=== PATIENT | male | born 1955 | race Caucasian/White ===

== ENCOUNTER 2016-09-22 05:35 | Day surgery (SDC) ==
[2016-09-22] MEDS ORDERED: LR 1,000 ML ONE (06:11)
[2016-09-22] MEDS ORDERED: MYLICON DROPS (DOSE) MISC ONE (08:08)
[2016-09-22] MEDS ORDERED: EPHEDRINE ONE (08:47)
[2016-09-22 09:37] VITALS: BP 123/76
[2016-09-22] MEDS ORDERED: DIPRIVAN 1% 50 ML ONE (10:14)
--- NOTE | 2016-09-23 00:07 | CONSULTATION ---
DATE OF CONSULTATION: 09/22/2016 REFERRING PHYSICIAN: Dr. Chilo Doll MD. INDICATION FOR CONSULTATION: 1. Nausea with vomiting. 2. Abdominal pain. 3. Diarrhea. 4. Anemia. 5. Hematemesis. HISTORY OF PRESENT ILLNESS: The patient is a 60-year-old, white male, who has struggled with alcohol abuse. He reports the onset of the above symptoms. He presents for further evaluation. He notes that he has a history of a Kati-en-Y gastric bypass and is concerned about the presence of an ulcer. We are asked to perform endoscopic evaluation. PAST MEDICAL HISTORY: 1. ETOH use. 2. BPH. 3. Hypertension. 4. Kidney stones. 5. Atrial fibrillation/holiday heart. 6. Urinary tract infection. 7. Morbid obesity, status post gastric bypass. He has had significant weight regain. 8. Anxiety. 9. Depression. PAST SURGICAL HISTORY: 1. Kati-en-Y gastric bypass. 2. Great toe amputation. 3. Back surgery. 4. Artery repair. FAMILY HISTORY: Remarkable for colon cancer, esophageal cancer and gastric cancer. SOCIAL HISTORY: Remarkable in that he drinks 1 pint of vodka per day. He denies tobacco use. He denies recreational drug use. He is a retired [employer]. CURRENT MEDICATIONS: 1. Flomax. 2. Lisinopril/hydrochlorothiazide. 3. OxyContin. 4. Prevacid. 5. . 6. Tramadol. 7. Valium. REVIEW OF SYSTEMS: The patient reports diffuse abdominal pain, nausea with vomiting, diarrhea, dysphagia, early satiety, and fecal incontinence. PHYSICAL EXAMINATION: General: On exam, he is an ill-appearing white male, who appears older than his stated age. vital signs: His blood pressure is 152/87, pulse 76, respirations 16, temperature of 97.9. His ASA is 3. HEENT: Remarkable for dry oropharyngeal mucosal membranes. His conjunctivae are normal. His sclerae are anicteric. Neck: Supple. Chest: Clear to auscultation with normal expiratory effort. Cardiovascular: Reveals regular rate and rhythm with no murmurs, gallops, or rubs. Abdominal: Reveals normoactive bowel sounds. The abdomen is soft with mild diffuse tenderness, but no rebound or guarding. He has evidence of central adiposity. Rectal: His stools were guaiac positive. Neurologic: He is alert and oriented x3 with the appropriate mood, affect, and memory. Musculoskeletal: Remarkable for trace edema bilaterally. OBJECTIVE DATA: From 09/15/2016, reveals a hemoglobin of 13.2, with hematocrit of 41.2, and white count of 5.19. He has 344,000 platelets. PT is 10.0 with an INR 0.98. IMPRESSION: 1. Nausea with vomiting. 2. Hematemesis. 3. Dysphagia. 4. Anemia. 5. Abdominal pain. 6. ETOH abuse. 7. Family history of colon cancer. RECOMMENDATION: 1. We will plan to perform an EGD with possible esophageal dilation. 2. We will perform a colonoscopy for further evaluation. 3. Continue current medications. 4. Continue Prevacid. 5. Additional recommendations to follow based on our endoscopic findings.
--- NOTE | 2016-09-23 03:21 | OPERATIVE NOTE ---
PROCEDURE DATE: 09/22/2016 REFERRING PHYSICIAN: Chilo Doll MD. INDICATIONS FOR PROCEDURE: 1. Nausea with vomiting. 2. Hematemesis. 3. Dysphagia. 4. Abdominal pain. 5. Diarrhea. 6. Anemia. 7. Heme-positive stools. 8. History of Kati-en-Y gastric bypass. PROCEDURE PERFORMED: Esophagogastroduodenoscopy. CONSENT: Informed consent was obtained from the patient prior to the procedure. The risks, benefits, and alternatives were discussed. MEDICATIONS: The patient received monitored anesthesia care. PERFORMING PHYSICIAN: Rossana Monahan MD. ASSISTANTS: 1. [facility] 2. Inder Baca RN. 3. Benjamin Waddell CRNA. 4. Abilio Guerrier MD (anesthesia). COMPLICATIONS: There were no complications. ESTIMATED BLOOD LOSS: None. FINDINGS: After sedation was achieved, the upper endoscope was inserted to the mid efferent jejunum. The hypopharynx appeared endoscopically normal. There were visible nasopharyngeal secretions in the hypopharynx. The tubular esophagus had normal mucosa to the distal esophagus. However, the lumen was extremely tortuous. There were small to medium varices present but no stigmata of bleeding. At the GE junction, there was grade B erosive esophagitis with streaks of erosions at the GE junction but they involved less than 75% of the circumference. The GE junction was measured at 38 cm. In the gastric lumen, there were surgical changes consistent with the patient's history of a Kati-en-Y gastric bypass. However, the lumen had a slight twist to the luminal surface in the distal pouch. There was over 100 mL of retained gastric liquid that was pooling in the upper pouch. This is consistent with gastric stasis. After evacuation, there were severe erosive changes in the pouch with nonbleeding AVMs. The pouch spanned from 38-45 cm. At the anastomosis, the mucosa appeared normal. Both the afferent and the efferent limbs of the jejunum were normal. After the exam was complete, the lumen was decompressed and the scope was removed without incident. IMPRESSION: 1. Nasopharyngeal secretions. 2. Tortuous esophagus. 3. Small to medium esophageal varices. 4. Grade B erosive esophagitis. 5. Erosive gastritis in the pouch with no evidence of bleeding. 6. Nonbleeding gastric arteriovenous malformations. 7. Normal gastrojejunal anastomosis. 8. Normal jejunum. RECOMMENDATION: 1. We will obtain a gastric emptying study. 2. Because of the esophageal tortuosity, I will also obtain a modified barium swallow. 3. Continue Prevacid daily. 4. Add Carafate 1 g p.o. 4 times a day for 12 weeks, then stop. 5. We will need to consider nadolol if he has evidence of cirrhosis. I will recheck an abdominal ultrasound and consider a liver biopsy as he has had abnormal liver function tests. 6. We will proceed with the colonoscopy as previously scheduled.
--- NOTE | 2016-09-23 03:26 | OPERATIVE NOTE ---
PROCEDURE DATE: 09/22/2016 REFERRING PHYSICIAN: Chilo Doll MD. INDICATION FOR PROCEDURE: 1. New onset diarrhea. 2. Heme-positive stools. 3. Anemia. 4. Family history of colon cancer. PROCEDURE PERFORMED: 1. Colonoscopy with polypectomy. 2. Colonoscopy with biopsy. CONSENT: Informed consent was obtained from the patient prior to the procedure. The risks, benefits, and alternatives were discussed. MEDICATIONS: The patient received monitored anesthesia care. PERFORMING PHYSICIAN: Rossana Monahan MD. ASSISTANTS: 1. [facility] 2. Inder Baca RN. 3. Benjamin Waddell CRNA. 4. Abilio Guerrier MD (anesthesia). COMPLICATIONS: There were no complications. ESTIMATED BLOOD LOSS: Less than 1 mL. SPECIMENS REMOVED: 1. Random colon biopsy. 2. Ascending colon polyp. CECAL INTUBATION TIME: 5 minutes. WITHDRAWAL TIME: 13 minutes. PREP QUALITY: Fair. FINDINGS: After sedation was achieved and the EGD performed, the patient was repositioned. The pediatric colonoscope was inserted to the terminal ileum. The terminal ileum, ileocecal valve, and appendiceal orifice appeared endoscopically normal. In the proximal ascending colon, there was a 5-10 mm sessile polyp that was removed by snare cautery. Upon further withdrawal, the colonic mucosa appeared grossly normal except for nonbleeding AVMs scattered throughout the colon. In the upper rectum, there were grade 2 internal hemorrhoids. On retroflexed view, there were medium external hemorrhoids. There was no stigmata of bleeding. Throughout the exam, random colon biopsies were taken. There were no other findings to account for the patient's symptoms. After the exam was complete, the lumen was decompressed and the scope was removed without incident. IMPRESSION: 1. Sessile ascending colon polyp, status post snare cautery. 2. Nonbleeding arteriovenous malformations. 3. Otherwise normal-appearing colonic mucosa. 4. Grade 2 internal hemorrhoids. 5. Medium external hemorrhoids. RECOMMENDATION: 1. Await endoscopic biopsy results. 2. Repeat colonoscopy in 5 years. Please note, it may be modified pending biopsy results. 3. Add Bentyl 10 mg 1 p.o. 4 times a day as the patient has a clinical history suggestive of irritable bowel syndrome. 4. We will have the patient return to clinic in 6 weeks to assess interval progress.
== END 2016-09-22 09:35 | disposition home or self-care (01) ==
LOC: ENDO 05:35
PROVIDERS: ATTEND Internal Medicine Gastroenterology
DX: D12.2 Benign neoplasm of ascending colon (principal); R11.2 Nausea with vomiting, unspecified; R19.7 Diarrhea, unspecified; R10.9 Unspecified abdominal pain; D64.9 Anemia, unspecified; K92.0 Hematemesis; N40.0 Benign prostatic hyperplasia without lower urinary tract symptoms; I10 Essential (primary) hypertension; Z87.442 Personal history of urinary calculi; I48.91 Unspecified atrial fibrillation; E66.9 Obesity, unspecified; Z80.0 Family history of malignant neoplasm of digestive organs; R13.10 Dysphagia, unspecified; R15.9 Full incontinence of feces; Z98.84 Bariatric surgery status; R68.81 Early satiety; F10.10 Alcohol abuse, uncomplicated; K21.9 Gastro-esophageal reflux disease without esophagitis; K22.8 Other specified diseases of esophagus; K31.819 Angiodysplasia of stomach and duodenum without bleeding; I85.00 Esophageal varices without bleeding; K20.9 Esophagitis, unspecified; K31.84 Gastroparesis; K55.20 Angiodysplasia of colon without hemorrhage; K64.1 Second degree hemorrhoids; K64.4 Residual hemorrhoidal skin tags; Z79.899 Other long term (current) drug therapy; F41.9 Anxiety disorder, unspecified; F32.9 Major depressive disorder, single episode, unspecified
CPT/HCPCS: 88305; 88313; J7120

== ENCOUNTER 2017-01-22 16:38 | Inpatient (IN) ==
[2017-01-22] MEDS ORDERED: ZOFRAN IV ONE (16:52)
[2017-01-22] MEDS ORDERED: NS 1,000 ML IV ONE (16:52)
--- NOTE | 2017-01-22 17:18 | PROVIDER DOCUMENTATION ---
This chart was entered by Brionna Galindo Scribe, acting as scribe for Francisco Ugarte MD. HPI-Abdominal Pain/GI Problem - General Source: patient - History of Present Illness-ABD Nature of Presenting Problems: Pt is 61 y/o M presents to the ED with abdominal pain. Pt states pain has been presents for 24 hrs. Pt states was seen at [facility] and had an abdominal xray and labs. Pt states having abnormal labs. Pt states N and V . He has actually not been feeling well for 4 days but just went to be seen today. he very rarely every has a fever. he lost #160 after gastric by-pass and panniculectomy, has had 3 lumbar operations, L great toe surger, lazy eye OS, tonsilecctomy, removal of a testicular cyst, prostate bx 6 months ago, and recent normal egd/ colonoscopy. Ileus on abdominal xray and WBC of 12,00 prompted his referral to us Abdominal Pain Onset Location: reports: generalized abdomen Pain Radiation: reports: no radiation Quality of Pain: reports: aching Severity in ED: reports: mild Onset/Duration: reports: 24 hours ago Timing: reports: still present Activities at Onset: reports: light activity Exposure to sick contacts?: No Modifying Factors: improves with: nothing Associated Symptoms: reports: loss of appetite, nausea, vomiting. denies: anxiety, arm pain, back/neck pain, chest pain, constipation, cough, diaphoresis , diarrhea, dizziness, EENT symptoms, fatigue, fever/chills, genitourinary problems, headaches, heartburn, joint pain, malaise, muscle aches, sinus congestion/drainage, rash, seizure, shortness of breath, sensory/motor loss, pain with inspiration, swelling/mass in abdomen, syncope, weakness, trouble walking Last BM: unsure Dark Stools Present?: reports: none noticed Rectal Bleeding: reports: none Rectal Pain: reports: none Emesis Description: reports: clear Bruising or Bleeding Gums?: No Similar Symptoms Previously?: Yes Recently seen or treated by another doctor?: Yes <Francisco Ugarte - Last Filed: 01/22/17 17:53> - General Source: patient <CatherineDara DulceXiomara - Last Filed: 01/22/17 19:48> - General Chief Complaint: Abdominal Pain Stated Complaint: SENT BY [facility] FOR FURTHER EVAL Time Seen by Provider: 01/22/17 16:48 Allergies/Adverse Reactions: Patient Allergies Allergy/AdvReac Type Severity Reaction Status Date / Time cefaclor [From Ceclor] Allergy ANAPHYLAXIS Verified 08/24/14 06:27 cephalexin monohydrate * Allergy ANAPHYLAXIS Verified 09/22/16 06:16 [From Keflex] codeine Allergy ITCHING Verified 09/22/16 06:16 Tetanus Vaccines and Toxoid Allergy ANAPHYLAXIS Verified 08/24/14 06:27 [Tetanus Vaccines & Toxoid] Home Medications: Home Medication List Medication Instructions Recorded Confirmed Last Taken Type Lisinopril/Hydrochlorothiazide 1 each PO DAILY 08/24/14 09/22/16 09/22/16 05:00 History [Lisinopril-Hctz 20-25 mg Tab] Oxycodone HCl [Roxicodone] 30 mg PO 4XDAY 08/24/14 09/22/16 09/21/16 13:00 History Diazepam [Valium] 10 mg PO HS 09/21/16 09/22/16 09/21/16 History Oxycodone HCl [Oxycontin] 40 mg PO DAILY 09/21/16 09/22/16 09/21/16 History Dicyclomine [Bentyl] 10 mg PO 4XDAY #120 capsule 09/22/16 Unknown Rx Ergocalciferol (Vitamin D2) 50,000 unit PO Q3DAYS #10 capsule 09/22/16 Unknown Rx [Vitamin D2] Lansoprazole [Prevacid] 30 mg PO DAILY 09/22/16 09/22/16 09/20/16 History Sucralfate [Carafate] 1 gm PO 4XDAY #120 tablet 09/22/16 Unknown Rx Review of Systems - Adult - REVIEW OF SYSTEMS - ADULT Constitutional: reports: no symptoms reported Eyes: reports: no symptoms reported Ears, Nose, Mouth & Throat: reports: no symptoms reported Cardiovascular: reports: no symptoms reported Respiratory: reports: no symptoms reported Gastrointestinal: reports: abdominal pain, nausea, vomiting. denies: diarrhea Genitourinary: reports: no symptoms reported Musculoskeletal: reports: no symptoms reported Integumentary: reports: no symptoms reported Neurological: reports: no symptoms reported Psychiatric: reports: no symptoms reported Endocrine: reports: no symptoms reported Hematologic/Lymphatic: reports: no symptoms reported Allergic/Immunologic: reports: no symptoms reported All Other Systems: Reviewed and Negative <Franicsco Ugarte - Last Filed: 01/22/17 17:53> - REVIEW OF SYSTEMS - ADULT Constitutional: reports: see HPI Eyes: reports: see HPI Ears, Nose, Mouth & Throat: reports: see HPI Cardiovascular: reports: see HPI Respiratory: reports: see HPI Gastrointestinal: reports: see HPI Genitourinary: reports: see HPI Musculoskeletal: reports: see HPI Integumentary: reports: see HPI Neurological: reports: see HPI Psychiatric: reports: see HPI Endocrine: reports: see HPI Hematologic/Lymphatic: reports: see HPI Allergic/Immunologic: reports: see HPI <Dara Alexander - Last Filed: 01/22/17 19:48> Past History - Adult - PAST MEDICAL HISTORY-ADULT Review of Records: reports: Nursing Assessment Review, Medications Reviewed, Social history reviewed & non-contributory. Major Childhood Illnesses: reports: denies history Cardiovascular: reports: HTN Respiratory: reports: denies history Gastrointestinal: reports: denies history Obstetrical/Gynecological: reports: denies history Genitourinary: reports: denies history Musculoskeletal: reports: chronic pain (back) Neurological: reports: denies history Endocrine/Immune: reports: denies history Other Conditions: reports: denies history - PRIOR SURGERIES/PROCEDURES Surgical/Procedure History: reports: back/neck (back) - IMMUNIZATION STATUS Childhood Immunizations: See Nurse Assessment Flu Vaccine: See Nurse Assessment - FAMILY HISTORY Family History: reviewed, not pertinent - SOCIAL HISTORY Smoking: denies Substance Use: alcohol Alcohol Use Frequency: 3-4 times a week Number of drinks per typical drinking period:: 3-4 drinks Living Situation: family <Francisco Ugarte - Last Filed: 01/22/17 17:53> - PAST MEDICAL HISTORY-ADULT Review of Records: reports: Old Records Reviewed <Dara Alexander - Last Filed: 01/22/17 19:48> Physical Exam-General - PHYSICAL EXAM-ADULT Initial Vital Signs Reviewed: Yes - CONSTITUTIONAL General Appearance: appears well, alert, mild distress - EYES Eyes: PERRL/EOMI, pink conjunctivae - HEAD, EARS, NOSE, MOUTH & THROAT HENMT: normocephalic/atraumatic, moist mucous membranes, normal ENT inspection - NECK Neck: non-tender, normal inspection - RESPIRATORY Respiratory: chest non-tender, lungs clear, normal breath sounds - CARDIOVASCULAR Cardiovascular: normal peripheral pulses, regular rate, rhythm - GASTROINTESTINAL (ABDOMEN) Abdominal Exam: normal bowel sounds, soft, distended, tenderness (generalized) - LYMPHATIC Lymphatic: no adenopathy - MUSCULOSKELETAL Back Exam: normal inspection Extremity: normal range of motion, normal inspection - SKIN Integumentary: normal color, normal turgor, warm/dry - NEUROLOGIC Neurologic: grossly normal - PSYCHIATRIC Psych/Mental Status: normal mood/affect, oriented x 3 <Francisco Ugarte - Last Filed: 01/22/17 17:53> - PHYSICAL EXAM-ADULT Initial Vital Signs Reviewed: Yes - CONSTITUTIONAL General Appearance: appears well, alert, mild distress - EYES Eyes: PERRL/EOMI, pink conjunctivae - HEAD, EARS, NOSE, MOUTH & THROAT HENMT: normocephalic/atraumatic, moist mucous membranes, normal ENT inspection - NECK Neck: non-tender, normal inspection - RESPIRATORY Respiratory: chest non-tender, lungs clear, normal breath sounds - CARDIOVASCULAR Cardiovascular: normal peripheral pulses, regular rate, rhythm - GASTROINTESTINAL (ABDOMEN) Abdominal Exam: distended, guarding, rigid, tenderness. negative: normal bowel sounds - MUSCULOSKELETAL Back Exam: normal inspection Extremity: normal range of motion, normal inspection - SKIN Integumentary: normal color, normal turgor, warm/dry <Dara Alexander - Last Filed: 01/22/17 19:48> Progress - PLAN OF CARE/RESULTS Progress/Plan/Lab Results: Vital Signs - 8 hr 01/22/17 16:44 Temperature 98.7 F Pulse Rate 76 Respiratory Rate 20 Blood Pressure 96/54 O2 Sat by Pulse Oximetry 98 Orders Category Date Time Status Saline Loc DIRECTED Care 01/22/17 16:48 Active NPO Diet 01/22/17 16:48 Active AMYLASE [CHEM] Stat Lab 01/22/17 16:48 Uncollected CBC WITH ELECTRONIC DIFF [HEME] Stat Lab 01/22/17 16:48 Uncollected COMPREHENSIVE METABOLIC PANEL [CHEM] Stat Lab 01/22/17 16:48 Uncollected LIPASE [CHEM] Stat Lab 01/22/17 16:48 Uncollected URINALYSIS W/POSS RFLX CULT-1 [URINALYSIS] Stat Lab 01/22/17 16:48 Uncollected 0.9% Sodium Chloride Inj [Ns] 1,000 ml Med 01/22/17 16:52 Active IV 999 mls/hr Ondansetron [Zofran] Med 01/22/17 16:52 Discontinued 4 mg IV NOW ONE Result Diagrams: 01/22/17 17:14 - EKG 1 Time of EKG reading by physician:: 16:53 EKG Read and Signed by:: Francisco Ugarte EKG Interpretation (*Must complete 3 of following elements*): Abnormal Rate: 71 Rhythm: normal sinus rhythm Comments: inferior infarct, age undetermined - CHANGE OF SHIFT REPORT (ED Provider) Report Given and Care Transferred to:: Dr. Alexander Time of Transfer: 17:53 Items Pending: Labs, CT/MRI Results (CT) <Francisco Ugarte - Last Filed: 01/22/17 17:53> - PLAN OF CARE/RESULTS Progress/Plan/Lab Results: Vital Signs - 8 hr 01/22/17 16:44 01/22/17 19:26 Temperature 98.7 F Pulse Rate 76 67 Respiratory Rate 20 12 Blood Pressure 96/54 102/57 O2 Sat by Pulse Oximetry 98 96 Laboratory Results - last 24 hr 01/22/17 01/22/17 01/22/17 17:14 17:14 17:30 WBC 11.71 H RBC 4.20 L Hgb 12.2 L Hct 34.7 L MCV 82.6 MCH 29.0 MCHC 35.2 RDW Std Deviation 15.8 H Plt Count 294 MPV 10.3 Immature Gran % (Auto) 0.3 Neut % (Auto) 87.0 H Lymph % (Auto) 5.6 L [place] % (Auto) 6.9 Eos % (Auto) 0.1 Baso % (Auto) 0.1 Immature Gran # (Auto) 0.03 Neut # (Auto) 10.20 H Lymph # (Auto) 0.65 L [place] # (Auto) 0.81 H Eos # (Auto) 0.01 Baso # (Auto) 0.01 Sodium 110 L* Potassium 6.0 H* Chloride 73 L Carbon Dioxide 20 L Anion Gap 17 BUN 76 H Creatinine 6.1 H Estimated GFR/1.73 m2 9 BUN/Creatinine Ratio 12 Glucose 97 Calculated Osmolality 246 Calcium 8.9 Total Bilirubin 0.33 AST 22 ALT 12 Alkaline Phosphatase 108 Total Protein 7.3 Albumin 3.7 Globulin 3.6 Albumin/Globulin Ratio 1.0 Amylase 56 Lipase 21 Urine Source CLEAN CATCH Urine Color YELLOW Urine Turbidity CLEAR Urine pH 5.[address] 1.007 Urine Protein TRACE A Ur Glucose (Stick) NEGATIVE Ur Ketones (Stick) NEGATIVE Urine Blood TRACE A Urine Nitrite NEGATIVE Urine Bilirubin NEGATIVE Urobilinogen Dipstick NORMAL Urine Leukocytes NEGATIVE Urine WBC (Auto) <10 Urine RBC (Auto) <10 U Epithel Cells (Auto) <10 Urine Bacteria (Auto) NEGATIVE Orders Category Date Time Status Saline Loc DIRECTED Care 01/22/17 16:48 Active NPO Diet 01/22/17 16:48 Active ABDOMEN/PELVIS W/O CONTRAST [CT] Stat Exams 01/22/17 18:07 Completed AMYLASE [CHEM] Stat Lab 01/22/17 17:14 Completed CBC WITH ELECTRONIC DIFF [HEME] Stat Lab 01/22/17 17:14 Completed COMPREHENSIVE METABOLIC PANEL [CHEM] Stat Lab 01/22/17 17:14 Completed LIPASE [CHEM] Stat Lab 01/22/17 17:14 Completed URINALYSIS W/POSS RFLX CULT-1 [URINALYSIS] Stat Lab 01/22/17 17:30 Completed 0.9% Sodium Chloride Inj [Ns] 1,000 ml Med 01/22/17 16:52 Discontinued IV 999 mls/hr Albuterol 2.5MG/Ipratrop 0.5MG [Duoneb (A & A)] Med 01/22/17 19:23 Discontinued 3 ml INH NOW ONE Calcium Gluconate 1 gm Med 01/22/17 20:00 Active 0.9% Sodium Chloride Inj [Ns] 50 ml IV NOW Ondansetron [Zofran] Med 01/22/17 16:52 Discontinued 4 mg IV NOW ONE Aerosol Treatments Routine Oth 01/22/17 19:23 Active Aerosol Treatments Stat Oth 01/22/17 19:23 Active EKG [EKG] Stat Ther 01/22/17 19:21 Ordered Laboratory Tests 01/22/17 01/22/17 01/22/17 17:14 17:14 17:30 WBC 11.71 H RBC 4.20 L Hgb 12.2 L Hct 34.7 L MCV 82.6 MCH 29.0 MCHC 35.2 RDW Std Deviation 15.8 H Plt Count 294 MPV 10.3 Immature Gran % (Auto) 0.3 Neut % (Auto) 87.0 H Lymph % (Auto) 5.6 L [place] % (Auto) 6.9 Eos % (Auto) 0.1 Baso % (Auto) 0.1 Immature Gran # (Auto) 0.03 Neut # (Auto) 10.20 H Lymph # (Auto) 0.65 L [place] # (Auto) 0.81 H Eos # (Auto) 0.01 Baso # (Auto) 0.01 Sodium 110 L* Potassium 6.0 H* Chloride 73 L Carbon Dioxide 20 L Anion Gap 17 BUN 76 H Creatinine 6.1 H Estimated GFR/1.73 m2 9 BUN/Creatinine Ratio 12 Glucose 97 Calculated Osmolality 246 Calcium 8.9 Total Bilirubin 0.33 AST 22 ALT 12 Alkaline Phosphatase 108 Total Protein 7.3 Albumin 3.7 Globulin 3.6 Albumin/Globulin Ratio 1.0 Amylase 56 Lipase 21 Urine Source CLEAN CATCH Urine Color YELLOW Urine Turbidity CLEAR Urine pH 5.[address] 1.007 Urine Protein TRACE A Ur Glucose (Stick) NEGATIVE Ur Ketones (Stick) NEGATIVE Urine Blood TRACE A Urine Nitrite NEGATIVE Urine Bilirubin NEGATIVE Urobilinogen Dipstick NORMAL Urine Leukocytes NEGATIVE Urine WBC (Auto) <10 Urine RBC (Auto) <10 U Epithel Cells (Auto) <10 Urine Bacteria (Auto) NEGATIVE Result Diagrams: 01/22/17 17:14 01/22/17 17:14 - CONSULTS/PCP/HOSPITALIST Notification #1 *Consult/PCP/Hospitalist*: Dr Alston Time Discussed: 19:44 Consult Disposition: Admit #2 Consult: Dr Bush Time Discussed: 19:45 Consult Disposition: other (will se as inpt) <Dara Alexander - Last Filed: 01/22/17 19:48> Departure <Francisco Ugarte - Last Filed: 01/22/17 17:53> - Departure Date of Disposition Decision: 01/22/17 Time of Disposition Decision: 19:45 Certified Medical Emergency: Emergent - Critical Care Note This patient required my direct & personal management of CC.: No <Dara Alexander - Last Filed: 01/22/17 19:48> - Departure DIAGNOSIS: Small bowel obstruction, Hyponatremia, Hyperkalemia Renal failure Qualifiers: Renal failure chronicity: unspecified chronicity Qualified Code(s): N19 - Unspecified kidney failure Disposition: ADMITTED INPATIENT 09 Condition: Fair Referrals and Follow-Ups: None,PCP [Primary Care Provider] - This chart was documented by the indicated scribe, (Brionna Galindo, [place]) and accurately reflects the services I performed and decisions made by me, Francisco Ugarte MD, as attested by the provider's signature.
[2017-01-22 17:34] LABS: BASO% 0.1 % (0.0-0.8); EOS# 0.01 X1000 (0.0-0.7); EOS% 0.1 % (0.0-10.0); HEMATOCRIT 34.7 % (42.0-52.0); HEMOGLOBIN 12.2 g/dL (14.0-18.0); IMM GRAN# 0.03 X1000 (0.0-0.04); IMM GRAN% 0.3 % (0.0-0.5); LYMPH# 0.65 X1000 (1.2-3.4); LYMPH% 5.6 % (20.5-51.1); MANUAL DIFF NEEDED? NO; MCHC 35.2 g/dL (33-37); MCV 82.6 FL (81-99); MONO# 0.81 X1000 (0.11-0.59); MONO% 6.9 % (1.7-9.3); MPV 10.3 FL (7.4-10.4); PLT 294 X1000 (130-400)
[2017-01-22 17:39] LABS: URINE CULTURE NEEDED? NO; URINE MICRO REVIEW NEEDED? NO; URINE SOURCE CLEAN CATCH
[2017-01-22 17:48] LABS: BILIRUBIN URINE NEGATIVE (NEGATIVE); BLOOD URINE TRACE (NEGATIVE); COLOR YELLOW; GLUCOSE URINE NEGATIVE (NEGATIVE); LEUKOCYTES URINE NEGATIVE (NEGATIVE); NITRITE URINE NEGATIVE (NEGATIVE); PH URINE 5.5; PROTEIN URINE TRACE mg/dL (NEGATIVE); SP GRAVITY URINE 1.007; TURBIDITY URINE CLEAR (CLEAR); UROBILINOGEN URINE NORMAL (NORMAL)
[2017-01-22 17:49] LABS: UR EPITHELIAL CELLS <10 /HPF (<10); URINE BACTERIA NEGATIVE /HPF; URINE RBC <10 /HPF (<10); URINE WBC <10 /HPF (<10)
[2017-01-22 18:05] LABS: ALBUMIN 3.7 g/dL (3.5-5.0); CALCIUM 8.9 mg/dL (8.8-10.2); TOTAL BILIRUBIN 0.33 mg/dL (0.20-1.00); TOTAL PROTEIN 7.3 g/dL (6.3-8.3)
--- NOTE | 2017-01-22 19:08 | Diag Imaging Result Doc PS360 ---
EXAM: ABDOMEN/PELVIS W/O CONTRAST HISTORY: vomiting/ wbc 12,000/ cr 6.1 TECHNIQUE: COMPARISON: 11/19/2015 FINDINGS: There are several stones within the gallbladder. No adjacent inflammation. I believe there is been a gastric bypass procedure. Normal spleen and adrenal glands. Normal noncontrasted liver and pancreas. No renal stones. No hydronephrosis. Normal aorta. There are multiple dilated fluid-filled loops of bowel in the mid and left abdomen. The terminal ileum is not distended as the more proximal small bowel. Normal appendix. No abscess. The urinary bladder is moderately distended and appears normal. The prostate is not enlarged. IMPRESSION: 1. I suspect there is a partial or early small bowel obstruction 2. Cholelithiasis Electronically signed by Rodrick Mann 01/22/2017 7:05 PM
[2017-01-22] MEDS ORDERED: DUONEB (A & A) INH ONE (19:23)
[2017-01-22] MEDS ORDERED: CALCIUM GLUCONATE 1 GM in NS 50 ML IV ONE (20:00)
[2017-01-22] MEDS ORDERED: KAYEXALATE PR ONE (20:48)
[2017-01-22] MEDS ORDERED: NS 1,000 ML IV SCH ×2 (21:10→23:04)
[2017-01-22] MEDS ORDERED: ZOFRAN IV PRN (21:10)
[2017-01-22] MEDS ORDERED: SODIUM CHLORIDE 0.9% INJ SCH (21:10)
[2017-01-22 21:38] LABS: ALLEN TEST YES; BE -3.7 mmoll (-3.0-3.0); BLOOD TYPE ARTERIAL; DRAW SITE R RADIAL; METHB 1.2 % (0.0-1.5); MODALITY ROOM AIR; O2(CT) 16.4 mL/dL (15.0-23.0); PCO2(98.6) 34 mmHg (35-45); PO2(98.6) 82 mmHg (60-100); SAMPLE BLOOD; SAO2 97.7 % (95.0-100.0); THB 12.2 g/dL (11.5-17.4); pH(98.6) 7.39 (7.35-7.45)
[2017-01-22] MEDS: LEVAQUIN 500 MG/D5W 500 MG/100 ML IVPB IV SCH (22:24)
[2017-01-22] MEDS: PROTONIX IV SCH (22:24)
[2017-01-22 22:39] LABS: CALCIUM 9.4 mg/dL (8.8-10.2); POTASSIUM 5.8 mmol/L (3.5-5.1)
[2017-01-22] MEDS: MORPHINE IV PRN (23:12)
--- NOTE | 2017-01-23 02:14 | HISTORY AND PHYSICAL ---
PRIMARY CARE PHYSICIAN: None. CHIEF COMPLAINT: Feeling weak, and a problem with urination. HISTORY OF PRESENT ILLNESS: This is a 61-year-old male with a past medical history of hypertension, neuropathy, who presented to the emergency department complaining of general weakness, trouble with urination. The patient reports that around January 11-, he was complaining of burning urination, and also he was needed to push in order to make urine stream. Patient reported he has been seen by urologist Dr. Salazar in the past. He had prostatic hypertrophy, and he got a prostate biopsy in August this year. He was having those problems since January 11, so his sister actually gave him Bactrim for 5 days 2 times daily. During that period of time, he was feeling better, with less pain when he urinates, and also he reported no fever or chills. He stopped Bactrim 3 days ago. Since then, he is feeling more weak, more tired. As was mentioned before, he denies any fever or chills. He was seen actually at [facility], and he was sent from there for normal labs. Here, because of those problems, he got a CT of the abdomen and pelvis, which basically shows a partial small bowel obstruction. Also, labs from today shows severe hyponatremia and hyperkalemia, so we were called in for admission. PAST MEDICAL HISTORY: 1. Hypertension. 2. Diabetes mellitus type 2. Because of bariatric surgery, he stopped taking medications 14 years ago. 3. Bilateral neuropathy. 4. Insomnia. PAST SURGICAL HISTORY: 1. Gastric bypass in 2003. 2. Back surgery. 3. Patient had 3 laminectomies. The last one was many years ago, and at some point, he was placed with a nerve stimulator that was finally removed. SOCIAL HISTORY: He reports drinking vodka twice a week. He denies smoking tobacco or using illicit drugs. He does not work, and lives with and daughter. ALLERGIES: Patient is allergic to Ceclor, codeine, and tetanus vaccine and toxoid. REVIEW OF SYSTEMS: Patient reports being constipated. He had this constipation for a long period of time. He was evaluated by GI doctor, Dr. Monahan, in the past. He reports also that he was losing his balance. PHYSICAL EXAMINATION: VITAL SIGNS: Temperature 98.7 degrees, heart rate 67, respiratory rate 12, blood pressure 102/57, O2 saturation 96% on room air. GENERAL: This is a chronically ill-looking 61-year-old male, lying in bed, in no acute distress. HEENT: Head is normocephalic, atraumatic. Anicteric sclerae and pale conjunctivae. Mucous membranes moist. NECK: Supple. No JVD noted. No carotid bruits. No lymphadenopathy. No thyromegaly. CARDIOVASCULAR: S1, S2 heard. No murmurs, gallops, or rubs. Regular rate and rhythm. RESPIRATORY: Clear bilaterally to auscultation. No work of breathing or using accessory muscles. ABDOMEN: Soft, a little bit distended, with bowel sounds present. No organomegaly. No signs of peritoneal irritation. EXTREMITIES: No clubbing, cyanosis, or edema. Signs of chronic venous insufficiency. NEUROLOGICAL: Patient alert, oriented x3. Able to move 4 extremities. Cranial nerves 2-12 grossly normal. LABORATORY DATA: White cell count 11.71, hemoglobin 12.2, hematocrit 34.7, platelets 294,000. Sodium 130, potassium 6.0, chloride 73, bicarbonate 20, anion gap 17, creatinine 6.1, BUN 76, GFR 9. Liver function tests are okay, with almost just trace blood in the urine, but the rest of the urinalysis is normal. The CT of the abdomen and pelvis shows partial or early small bowel obstruction and cholelithiasis. ASSESSMENT AND PLAN: 1. Acute renal failure. As per the patient's family, they were not aware that this patient had any renal dysfunction. Apparently, in his last visit to the hospital 3 weeks ago, he had labs done in November 2015 here in the hospital that shows a creatinine 1.3, with BUN of 26, which means a mild renal insufficiency, with GFR 57. Today is 6.1 creatinine, with GFR 9. I think this is multifactorial, because of the dehydration, the patient was unable to keep things down for the last 3 days. Also, he was taking Bactrim for 5 days. In any case, we prefer to start IV fluids, in this case normal saline at 150 mL/h. We will check BMP daily. 2. Severe hyponatremia. That could be related probably to the fact that he was getting between 1.5 and 2 L of water. Also, some Gatorade. Because of his urine, he thought that he needs some more hydration. In any case, we are going to do urine osmolality, serum osmolality, and we will consult Dr. Mckeon from Nephrology. 3. Severe hyperkalemia, with potassium 6.0. We are going to check an EKG to see if there are any electrical abnormalities. In any case, we will provide rectal Kayexalate, and will check BMP daily. 4. Severe hyponatremia, multifactorial. We will start this patient on normal saline at 150 mL/h, and we are going to check overnight BMP every 4 hours. We will readjust the rate of IV fluids accordingly. 5. Urinary tract infection. Patient was complaining of severe pain when he urinates. He has a history of recurring urinary tract infection, so we are going to order a urine culture, and will start ceftriaxone 1 g IV q.24 hours. 6. Small bowel obstruction. I think maybe this is related to chronic constipation because of chronic opiate use. In any case, we prefer to give Fleet enema. We will see what GI has to say. 7. Hypertension. At this point, we have held all blood pressure medications. Will treat accordingly if blood pressure goes after rate of 180. 8. Chronic pain syndrome. At this point, we are going to use morphine 2 mg IV q.3 hours p.r.n. pain, considering his renal function, although we understand that this patient has been of a lot of pain medications for a while. 9. Problems with voiding. We are going to consult Dr. Salazar, who is drug enforcement administration agent, his primary urologist, and we will go from there. cc: Justice Lamb MD
[2017-01-23 02:18] LABS: CALCIUM 8.9 mg/dL (8.8-10.2); POTASSIUM 5.3 mmol/L (3.5-5.1)
[2017-01-23] MEDS: MORPHINE IV PRN ×4 (02:53→23:07)
[2017-01-23 05:25] LABS: MANUAL DIFF NEEDED? NO
[2017-01-23 05:41] LABS: BASO% 0.2 % (0.0-0.8); EOS# 0.02 X1000 (0.0-0.7); EOS% 0.4 % (0.0-10.0); HEMATOCRIT 33.8 % (42.0-52.0); HEMOGLOBIN 11.8 g/dL (14.0-18.0); LYMPH% 8.3 % (20.5-51.1); MCH 29.6 PG (27-31); MCHC 34.9 g/dL (33-37); MCV 84.7 FL (81-99); MONO# 0.54 X1000 (0.11-0.59); MONO% 11.2 % (1.7-9.3); MPV 10.1 FL (7.4-10.4); NEUT% 79.9 % (42.2-75.2); PLT 241 X1000 (130-400); RBC 3.99 XMIL (4.7-6.1)
[2017-01-23] MEDS ORDERED: LEVOPHED 8 MG in D5 1/2 NS 250 ML IV SCH (06:00)
[2017-01-23 06:09] LABS: CALCIUM 9.1 mg/dL (8.8-10.2); POTASSIUM 5.2 mmol/L (3.5-5.1)
[2017-01-23] MEDS: ATIVAN IV SCH ×3 (08:26→17:58)
[2017-01-23 09:19] LABS: CALCIUM 9.3 mg/dL (8.8-10.2); POTASSIUM 5.1 mmol/L (3.5-5.1)
--- NOTE | 2017-01-23 09:47 | PROGRESS NOTE ---
DATE: 01/23/2017 HISTORY OF PRESENT ILLNESS: This is a 61-year-old who was feeling weak and problem with urination with a past medical history of hypertension, peripheral neuropathy, lower back degenerative arthritis with multiple surgeries. He presented emergency room complaining of general weakness, trouble with urination. The patient reports around January 11 or , he was complaining of burning on urination. He needed to push in order to make his urine stream. The patient reported he had been seen by urology, Dr. Salazar, in the past. He had prostatic hypertrophy. He got a prostate biopsy in August of this year. He was having those problems since January 11 so his sister actually gave him some Bactrim for 5 days. During that period of time, he was feeling better with less pain when he urinated. Also reports that he had fever and chills. He stopped Bactrim 3 days ago. Feeling more weak and more tired as mentioned before. He denies any fever or chills. Then actually at [facility], he was sent there from here, I guess for abnormal labs. He got a CT of the abdomen and pelvis, which showed partial small bowel obstruction, which showed severe hyponatremia and hyperkalemia. PAST MEDICAL HISTORY: 1. Hypertension. 2. Diabetes mellitus type 2. 3. He had bariatric surgery back in 2002 or 2003. 4. Bilateral neuropathy. 5. Insomnia. PAST SURGICAL HISTORY: 1. Gastric bypass in 2003. 2. Back surgery. 3. The patient has had 3 laminectomies, the last one many years ago. At some point, he was placed on nerve stimulation. 4. He has bilateral peripheral neuropathy which they attributes to his lower lumbar sacral nerve irritation. SOCIAL HISTORY: He, at 1 point, was drinking vodka twice a week. PHYSICAL EXAMINATION: Vital Signs: Today, in ICU, temperature is 98 degrees, pulse 76, respirations 21, blood pressure 101/41. HEENT: Pupils are equal and round. Lungs: Are clear in all lung treviño. Cardiovascular Examination: Regular rhythm and rate without murmur or S3. Abdomen: Soft. Skin: Warm and dry. Is and Os: Urine output was over 7 L. LAB: White count 4830, hematocrit 33, platelet count 241,000. Sodium 122, potassium 5.2, chloride 88, bicarb 22, BUN 66, creatinine 4.9. ASSESSMENT AND PLAN: 1. Acute renal failure, acute kidney injury. Continue fluids. Last to the hospital, his creatinine was 1.3, BUN was 26. 2. Severe hyponatremia. Continued to give him normal saline. 3. Severe hyperkalemia. it has gone down. 4. Severe hyponatremia, multifactorial. Continue intravenous fluids. 5. Urinary tract infection. Complained of severe pain. Continue antibiotics. He is on ceftriaxone. 6. Small bowel obstruction and probably complicated by chronic opiate use. Gastroenterology following. 7. Hypertension. 8. Chronic pain syndrome. 9. Problems with voiding. Dr. Salazar to see today. 10. Review of his orders. The patient is getting Ativan 0.5 mg IV t.i.d. He is getting morphine 2 mg IV q.3 hours p.r.n., Protonix 40 mg IV q.24 hours. He is on Levaquin arm. Note, labs from this morning, sodium has come up. The potassium has improved. Creatinine has improved. cc: MD Justice Portillo MD
--- NOTE | 2017-01-23 10:47 | Diag Imaging Result Doc PS360 ---
EXAM: ABDOMEN FLAT/UPRIGHT HISTORY: Follow up partial bowel obstruction TECHNIQUE: Two views COMPARISON: Compared to CT abdomen and pelvis from 01/22/2017 FINDINGS: The lower lungs are clear. No free air beneath the diaphragm. There are several mildly air distended loops of small bowel. These are less distended than on the prior study. There is air in the colon. No organomegaly. IMPRESSION: Interval improvement Electronically signed by Rodrick Mann 01/23/2017 10:45 AM
--- NOTE | 2017-01-23 11:23 | CONSULTATION ---
DATE OF CONSULTATION: 01/23/2017 REQUESTING PHYSICIAN: The hospitalist. REASON FOR CONSULTATION: Consult concerning partial small bowel obstruction. HISTORY OF PRESENT ILLNESS: A 61-year-old, male with a past medical history of hypertension and neuropathy who presented to the emergency department complaining of generalized weakness and trouble with urination. He also reported some nausea that has been persistent. He reports that his last bowel movement was the day prior to presentation. He was worked up in the emergency department for his weakness. Actually had a CT scan done which showed a partial small bowel obstruction. He also has a history of gastric bypass. This looks intact. No other acute pathology appreciated on the CT scan. He was admitted to the ICU given her electrolyte abnormalities and has been resuscitated. He also had an issue with urine output which he has, by report, had a large amount of urine output since he has gotten to the ICU. I was asked to evaluate the patient for his partial small bowel obstruction. Upon further questioning, he reports that he had some discomfort in the upper aspect of his abdomen where he thought where his transverse colon was. He reports now that it is better. He says that his abdomen does not feel as hard as it did. He, at this time, denies any kind of current nausea or vomiting when previously was getting a CT scan that showed a partial small bowel obstruction. PAST MEDICAL HISTORY: Includes hypertension, diabetes mellitus type 2, bilateral neuropathy, insomnia. PAST SURGICAL HISTORY: Includes gastric bypass, previous back surgery which included 3 laminectomies. MEDICATIONS AT HOME: The patient takes hydrochlorothiazide, oxycodone, Valium, OxyContin, Bentyl, vitamin D, Prevacid, Carafate. ALLERGIES: Allergies reported to cephalosporins, codeine, although it is reported only as an itching and he takes it apparently on daily basis, and tetanus. FAMILY HISTORY: Family history reviewed with the patient and noncontributory. SOCIAL HISTORY: Drinks vodka twice a week. Denies smoking and illicit drugs. REVIEW OF SYSTEMS: A full 10 point review of systems was obtained and negative except as specified in the HPI. PHYSICAL EXAMINATION: Vital Signs: Patient is currently afebrile. His most recent heart rate is in the 60s, most recent blood pressure 94/47, O2 saturation 98%. General Examination: No acute distress. Resting comfortably. male, looks stated age. HEENT: Normocephalic, atraumatic. Pupils equal, round, react to light. Mucous membranes moist. Oropharynx benign. Neck: Supple. Trachea midline. Cardiovascular: Regular rate and rhythm. Lungs: Grossly clear. Abdomen: Soft. At this time, nondistended. He does have active bowel sounds auscultated. No tenderness at this time. Extremities: Moves all extremities. Neurologic: Grossly intact. Skin: No signs of jaundice. Vascular: All extremities perfused. LABORATORY: Patient's white blood cell count is 4 this morning, his hematocrit is 33, platelet count is 241,000. Sodium was 120 which initially was 118 on presentation, potassium is 5.3, chloride 81, bicarb 20, BUN 71, creatinine 2.5. CT scan independently reviewed and radiology report reviewed. ASSESSMENT AND PLAN: A 61-year-old, male with weakness, severe electrolyte abnormalities, and partial small bowel obstruction. 1. Weakness. At this time, being worked up by the hospitalist. 2. Severe hyponatremia. At this time, he is being evaluated by the hospitalist. He is making some improvements slowly. 3. Severe hyperkalemia. At this time, improving. 4. Acute renal failure. At this time, he has had urine output that has increased. His BUN is improving but his creatinine still remaining elevated. Nephrology has been consulted. We will follow up with their recommendations. 5. Partial small bowel obstruction. At this time, he does have severe electrolyte abnormalities which may be contributing to his bowel obstruction. He did have an enema which he said he is feeling less distended. At this time, I would watch him and manage his other medical problems first. I appreciate the consult. If he does have persistent nausea, may need to evaluate his gastric bypass but at this time, I did not see any major pathology on the CT scan but again, we will hold off until all of his electrolytes are corrected. I appreciate the consult. cc: MD Justice North MD
[2017-01-23] MEDS: FLOMAX PO SCH ×3 (13:26→23:06)
[2017-01-23 14:27] LABS: CALCIUM 9.8 mg/dL (8.8-10.2); POTASSIUM 5.2 mmol/L (3.5-5.1)
--- NOTE | 2017-01-23 15:43 | CONSULTATION ---
DATE OF CONSULTATION: 01/22/2017 REQUESTING PHYSICIAN: Dr. Alston. REASON FOR CONSULTATION: Acute kidney injury, BPH, electrolyte abnormalities. HISTORY OF PRESENT ILLNESS: A 61-year-old male who is known to me secondary to BPH, with significant symptoms. His BPH has been managed with Flomax twice a day, which he was still having symptoms. He also has a strong family history of prostate cancer, and has undergone prostate biopsy in December 2016, which was thankfully benign. He planned to proceed with transurethral resection of the prostate, but had to defer that secondary to insurance problems. In the interim, he reports having run out of Flomax 0.4 mg twice a day over the last month and a half. Approximately 2 weeks ago, he reports starting to notice a significant decrease in the strength of urinary stream, suprapubic pressure, perineal pain, and dysuria. He has had Bactrim obtained via his sister, which he took for several days. He reports symptoms did not improve, and he developed, nausea, vomiting, and insomnia. Eventually, he was brought to [facility], where he was found to be in acute kidney failure. He was admitted to the hospital. He had a CT abdomen and pelvis done on 01/22/2017, which showed no evidence of urolithiasis, hydronephrosis. He did have a distended bladder. His creatinine at time of presentation was 6.1. Currently, he reports he is feeling somewhat better. He denies flank pain. He denies gross hematuria. He denies being treated for UTI over the last several months. PAST MEDICAL HISTORY: Diabetes mellitus, hypertension, BPH. PAST SURGICAL HISTORY: Gastric bypass, several back surgeries, and prostate biopsy. ALLERGIES: Ceclor, codeine, tetanus. SOCIAL HISTORY: Occasional alcohol. Denies tobacco or drug use. FAMILY HISTORY: Positive for prostate cancer. REVIEW OF SYSTEMS: Reviewed 12 systems. Negative, except as in HPI. PHYSICAL EXAMINATION: Vital Signs: Temperature 98.7, pulse 76, blood pressure 96/54. General: No acute distress. HEENT: Normocephalic, atraumatic. Cardiovascular: Regular rhythm. Pulmonary: Bilateral breath sounds. Abdomen: Protuberant, nontender to palpation. Genitourinary: Normal meatus. Benavidez catheter in place, draining straw-colored urine. Testes are nontender to palpation. Digital Rectal Examination: Approximately 35 g prostate, boggy, and exquisitely tender to palpation. Lymphatics: No groin lymphadenopathy. Neurologic: Alert and oriented x3. Psychiatric: Appropriate mood and affect. PERTINENT LABORATORY DATA: His creatinine is 4.9, white cell count of 5000. PERTINENT IMAGES: CT abdomen and pelvis as above. ASSESSMENT: A 61-year-old male with long-standing history of benign prostatic hypertrophy with symptoms, who likely has developed prostatitis, and given his running out of Flomax twice a day, developed retention and acute kidney injury. I have discussed with the patient the importance of medical compliance. Again, in the future, he likely would benefit from transurethral resection of the prostate. Currently, his creatinine is trending down with the Benavidez catheter, and will likely improve to baseline. PLAN: 1. Keep Benavidez catheter to gravity drainage. 2. Flomax 0.4 mg twice a day. 3. I will follow him. Thank you for the consultation. cc: MD Justice Mary MD
--- NOTE | 2017-01-23 16:00 | Diag Imaging Result Doc PS360 ---
EXAM: US RENAL 2 (RETROPER) COMPLETE HISTORY: mann TECHNIQUE: COMPARISON: None. FINDINGS: The right kidney measures 11.7 x 5.7 x 6.3 cm. Normal cortical thickness and echogenicity. No stone or hydronephrosis. No renal mass. The left kidney measures 9.5 x 4.7 x 5.7 cm. Normal renal echogenicity and cortical thickness. No renal stone or hydronephrosis. No renal mass. The urinary bladder is not distended. IMPRESSION: Normal renal ultrasound. Electronically signed by Rodrick Mann 01/23/2017 3:57 PM
[2017-01-23] MEDS ORDERED: TYLENOL PO PRN (17:31)
[2017-01-23] MEDS: NS 1,000 ML IV SCH (17:35)
--- NOTE | 2017-01-23 18:15 | CONSULTATION ---
DATE OF CONSULTATION: 01/23/2017 REASON FOR ADMISSION: Acute kidney injury, hyponatremia, hyperkalemia, urinary tract infection, small bowel obstruction. REASON FOR CONSULTATION: Acute kidney injury, assist with management. HISTORY OF PRESENT ILLNESS: This is a 61-year-old gentleman who has a past medical history of hypertension and apparently prostatitis for which he has been on Bactrim DS on multiple occasions. The patient stated about 10 days ago he had burning on urination and difficulty with stream initiation. One of his family has some Bactrim, and so he took that partial dose. He states that initially he started feeling better, but then his symptoms became worse. Along about the same time, he was having severe constipation. He used some fleets enemas, had some resolution, then had diarrhea and then constipation again. He states that he had progressive symptoms of nausea and vomiting, lethargy, even insomnia. These symptoms continued to worsen, so he went to [facility] and was sent to the emergency room for further workup. TREATMENT: In the ER, he had a CT of the abdomen and pelvis which shows partial small bowel obstruction. His laboratory showed hyperkalemia, hyponatremia, and a creatinine of 6.1. He has been treated with IV fluids, normal saline, was treated with Kayexalate for his potassium, and over the course of the night his potassium has risen, and his sodium has risen from 110 up to 122 this morning. His potassium is now down to 5.2 and creatinine is now down to 4.9. The patient has remained in ICU overnight requiring Levophed at low dose for blood pressure support. He is awake and alert and able to give an appropriate history when I see him. PAST MEDICAL HISTORY: Hypertension. Diabetes type 2. Bariatric surgery. Bilateral neuropathy. Prostatic hypertrophy. History of insomnia. Chronic back pain. PAST SURGICAL HISTORY: Gastric bypass. Back surgery. Laminectomies at least x3. He has been on nerve stimulation. Bilateral peripheral neuropathy, secondary to his nerve irritation. ALLERGIES: Multiple allergies. See chart for complete list, but these do include Ceclor, cephalexin, codeine, tetanus vaccine. HOME MEDICATIONS: Roxicodone, Lisinopril/hydrochlorothiazide, Valium, OxyContin , Bentyl, Carafate, Vitamin D2 and Prevacid. FAMILY HISTORY: Noncontributory. SOCIAL HISTORY: Occasional ETOH. No tobacco or illicit drug use. He is and has an attentive family. REVIEW OF SYSTEMS: Pertinent positives noted above in the HPI. PHYSICAL EXAMINATION: Vital Signs: Temperature 98 degrees, pulse 76, respiratory rate 21, blood pressure 101/41 on 10 mcg of Levophed. Intake 750 mL. Output 3.8 L. General: This is a chronically ill-appearing, middle-aged gentleman resting in bed. He is awake, alert, in no acute distress. HEENT: Normocephalic, atraumatic. Oral mucosa is moist. MAURICIO, conjunctivae pink. Neck: Supple. No JVD. Cardiovascular: Regular rate and rhythm. There is no murmur or gallop. He remains on pressor support. Pulmonary: He has equal excursion. He is clear bilaterally. He is on 2 L nasal cannula with no increased work of breathing. Abdomen: Soft, with positive bowel sounds. : He has a Benavidez catheter with yellow urine noted. Extremities: No clubbing, cyanosis or edema. He has chronic venous stasis changes noted to the lower extremities. Integumentary: Skin is warm and dry otherwise. Neurologic: Grossly nonfocal. LABORATORY DATA: Current laboratory: WBC of 4.8. Hemoglobin 11.8, hematocrit 33.8, platelet count of 241,000. Sodium 124, potassium 5.1, chloride 88, CO2 21, BUN 67 creatinine 4.5. His urine studies are pending. IMAGING: Abdominal CT showed a small bowel obstruction with no hydronephrosis and probable mild chronic kidney disease. ASSESSMENT AND PLAN: 1. Acute kidney injury. It looks like he has a baseline creatinine around 1.3 in September of this year and a GFR around 57 at that time. His acute kidney injury is likely multifactorial, both decreased oral intake along with medication use in the form of Bactrim and concurrent lisinopril/hydrochlorothiazide. The patient states that he "tripled up" on the Bactrim. He believes that it was single-strength Bactrim. His his renal function has had nice improvement overnight with the administration of IV fluids and after Benavidez catheter was placed, he has had significant urine output. He does have a history of benign prostatic hypertrophy and Dr. Salazar has already been consulted. We will continue the IV fluids. We will await his urine studies. He has no indications for dialysis at this time. We will recheck labs in the morning. 2. Hyponatremia. He has been treated with normal saline overnight with rather rapid improvement. He has not had any untoward effect from the sodium correction. He continues to have laboratory ordered q.4 hours through the day. 3. Hyperkalemia, resolved. 4. Urinary tract infection. He is on ceftriaxone. 5. Small bowel obstruction likely related to chronic constipation from his opiate use and exacerbated by electrolyte imbalance. We would prefer not to use Fleets secondary to his current renal function. Gastroenterology has been consulted. 6. Hypertension. He currently has all blood pressure medicines held and he is on Levophed. We will continue to hold the lisinopril, even after his pressure comes up until his renal function has returned to his baseline. Dictated by DUC Metz for Maciej Mckeon MD cc: MD Justice Pagan MD [facility]
[2017-01-23 18:27] LABS: UR CREAT RANDOM 83.4 mg/dL (14-26); UR PROT RANDOM 18.8 mg/dL
[2017-01-23] MEDS: LEVAQUIN 500 MG/D5W 500 MG/100 ML IVPB IV SCH (23:06)
[2017-01-23] MEDS: PROTONIX IV SCH (23:07)
[2017-01-24] MEDS: ATIVAN IV SCH ×5 (01:26→18:12)
--- NOTE | 2017-01-24 03:26 | CONSULTATION ---
DATE OF CONSULTATION: 01/23/2017 REFERRING PHYSICIAN: Justice Lamb MD. INDICATION FOR CONSULTATION: 1. Nausea with vomiting. 2. Abdominal pain. 3. History of Kati-en-Y gastric bypass. 4. Small bowel obstruction on CT scan. 5. Known history of portal hypertension with varices. HISTORY OF PRESENT ILLNESS: The patient is a 61-year-old, white male who has been followed in our clinic. He has a longstanding history of alcohol abuse. He reports that he drinks vodka twice per week. However, according to his family, he drinks multiple servings of vodka per day beginning early in the morning upon awakening. His reports that his last alcoholic beverage was 2 days prior to admission. He presented to the emergency room, complaining of generalized weakness and difficulty with urination. He thought he had a prostate infection and had planned to see Dr. Salazar. His states that for the last 5 days, he has had nausea with vomiting and dark colored stools. She also reports that he has been sleeping significantly longer than usual and feeling weak. He finally presented to [facility] because of the nausea with vomiting, fatigue, and an inability to urinate. He was transferred from [facility] to [facility] Emergency Room. A CT scan in the emergency room was remarkable for an early small bowel obstruction and cholelithiasis. He was admitted to the ICU for further evaluation as he was also noted to have hypotension. We are asked to participate in his care. PAST MEDICAL HISTORY: 1. Active ETOH abuse. 2. BPH. 3. Hypertension. 4. Kidney stones. 5. Intermittent atrial fibrillation. 6. Urinary tract infection. 7. Morbid obesity, status post gastric bypass with postoperative weight regain. 8. Anxiety. 9. Depression. 10. Gastroparesis. 11. History of peptic ulcer disease. 12. 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 13. Medium esophageal varices. 14. History of reflux esophagitis. 15. Intermittent dysphagia secondary to reflux esophagitis. 16. Colon polyps. 17. Irritable bowel syndrome. PAST SURGICAL HISTORY: 1. Kati-en-Y gastric bypass. 2. Great toe amputation. 3. Back surgery. 4. Artery repair. FAMILY HISTORY: Positive for colon cancer, esophageal cancer, and gastric cancer. SOCIAL HISTORY: The patient drinks 1 pint per day of vodka total on average, according to the patient. He states that he stopped drinking and was down to 1-2 drinks per day. However, his states that he continues to drink 1 pint of vodka per day beginning upon awakening at breakfast. He denies tobacco and recreational drug use. He is a retired police specialist. MEDICATION ALLERGIES: 1. Ceclor. 2. Keflex. 3. Codeine. 4. Tetanus vaccine and toxoid. HOME MEDICATIONS: 1. Roxicodone. 2. Oxycodone. 3. Lisinopril/hydrochlorothiazide. 4. Prevacid. 5. Carafate. 6. Vitamin D2. 7. Bentyl. 8. Valium. PHYSICAL EXAMINATION: General: On exam, he is resting comfortably in the bed in no acute distress. Vital Signs: His blood pressure is 113/58, pulse 71, respirations 16, temperature is 99.6 degrees. HEENT: Negative for jaundice. His oropharyngeal mucosal membranes are unremarkable. There is no evidence of jaundice. Pulmonary Examination: His lungs are clear to auscultation with normal respiratory effort. Cardiovascular Examination: Reveals regular rate and rhythm with no murmurs, gallops, or rubs. Abdominal Examination: Reveals hypoactive bowel sounds. His abdomen is soft but diffusely tender. There is no rebound or guarding. Extremities: Bilaterally are negative for cyanosis, clubbing, or edema. LABORATORY DATA: On admission, his hemoglobin was 12.2 with a hematocrit of 34.7, and a white count of 11.71. He had 294,000 platelets. Today, on 01/23/2017, his hemoglobin is 11.8, with a hematocrit of 33.8, and a white count of 4.83. He has 241,000 platelets. On admission, his sodium was 110, with a potassium of 6, chloride of 73, CO2 of 20, BUN of 76, and creatinine of 6.1. His glucose was 97, calcium 8.9, total bilirubin 0.33, AST 22, ALT 12, alkaline phosphatase 108, total protein 7.3, albumin 3.7, with an amylase of 56, and a lipase of 21. Currently, his sodium is 124, potassium 5.1, chloride 88, CO2 21, BUN 67, creatinine 4.5, with a glucose of 102, and a calcium of 8.8. His PT is 10 with an INR of 0.98. His blood gas on admission was 7.39, pCO2 of 34, PO2 of 82 on room air. His urinalysis was negative for infection. IMPRESSION: 1. Small bowel obstruction. 2. Profound hyponatremia. 3. Renal failure. 4. Hypotension. 5. Hyperkalemia. 6. Recent urinary tract infection. 7. Hypertension. 8. Chronic pain syndrome. 9. Gastroparesis. 10. Nausea with vomiting. 11. Portal hypertension with known esophageal varices. 12. Cirrhosis. 13. Alcohol abuse. RECOMMENDATION: 1. From a GI perspective, his nausea with vomiting has improved. I recommend supportive care for the treatment of his early partial small bowel obstruction, especially in light of the electrolyte derangements. 2. We have discussed alcohol cessation in the past. 3. I recommend supportive care overall with IV Protonix 40 mg once daily. 4. I would resume the Carafate as soon as possible in light of his severe erosive esophagitis. 5. I would resume his vitamin D supplementation when it is clinically appropriate. 6. I agree with the Levaquin for his subjective fevers, especially in light of his urinary tract infection. 7. He is currently requiring norepinephrine for hypotension. I will defer to the primary team for further management of his cardiovascular status. 8. He does have symptoms consistent with irritable bowel syndrome at home. He typically has constipation alternating with diarrhea. It is reasonable to consider Bentyl once he is clinically stable. 9. We will continue to follow along with you at this time. cc: MD Grady Bennett MD Cesar Garcia-Rodriguez, MD
[2017-01-24] MEDS: MORPHINE IV PRN ×6 (04:31→21:25)
[2017-01-24] MEDS: NS 1,000 ML IV SCH ×3 (05:26→20:12)
--- NOTE | 2017-01-24 07:10 | PROGRESS NOTE ---
DATE: 01/24/2017 SUBJECTIVE: Patient doing okay. He passed gas. No major issues reported by the nursing staff. They do report that they found some of his OxyContin from home in his bed. OBJECTIVE: Vital Signs: Patient is currently afebrile. His vital signs have been stable. General Examination: No acute distress. Resting comfortably. HEENT: Normocephalic and atraumatic. Pupils equal, round, reactive to light. Mucous membranes moist. Oropharynx benign. Neck: Supple. Trachea midline. Cardiovascular: Regular rate and rhythm. Lungs: Grossly clear. Abdomen: Soft, nontender, nondistended at this time. He has active bowel sounds auscultated. Extremities: Moves all extremities. Neurologic: Grossly intact. Skin: No signs of jaundice. Vascular: All extremities perfused. Laboratory: Reviewed. White blood cell count is 4, hematocrit 33. Sodium is 127, potassium is 5.2, creatinine 3.8. Abdominal x-ray from yesterday shows interval improvement. ASSESSMENT/PLAN: A 61-year-old, male with multiple electrolyte abnormalities, now with resolving partial small bowel obstruction. 1. Multiple electrolyte abnormalities, at this time being managed by the hospitalist service. They were resuscitating appropriately. I believe once his electrolyte abnormalities have been addressed, he will improve with his ileus. 2. Partial small bowel obstruction. At this time, he has had return of flatus. I will give him a full liquid diet. He is not nauseated. His abdominal film showed interval improvement yesterday. We will continue to monitor him closely. cc: MD Grady North MD
[2017-01-24 07:21] LABS: ALBUMIN 3.5 g/dL (3.5-5.0); CALCIUM 8.9 mg/dL (8.8-10.2)
[2017-01-24 07:34] LABS: BASO% 0.6 % (0.0-0.8); EOS# 0.04 X1000 (0.0-0.7); EOS% 0.8 % (0.0-10.0); HEMOGLOBIN 12.9 g/dL (14.0-18.0); IMM GRAN# 0.04 X1000 (0.0-0.04); IMM GRAN% 0.8 % (0.0-0.5); LYMPH# 0.65 X1000 (1.2-3.4); LYMPH% 12.6 % (20.5-51.1); MANUAL DIFF NEEDED? YES; MCH 28.9 PG (27-31); MCHC 33.1 g/dL (33-37); MCV 87.4 FL (81-99); MONO# 1.13 X1000 (0.11-0.59); MPV 9.7 FL (7.4-10.4); NEUT% 63.2 % (42.2-75.2); PLT 268 X1000 (130-400); RBC 4.46 XMIL (4.7-6.1)
[2017-01-24 07:39] LABS: BANDS 8 % (0-1); LYMPHS 2 % (21-51); MONO 18 % (1-9)
[2017-01-24] MEDS: FLOMAX PO SCH ×2 (08:14→20:57)
--- NOTE | 2017-01-24 09:43 | EKG Report ---
Test Performed on : 01/22/2017 4:53:39 PM Test Reason : ED. CANC IN ERROR Blood Pressure : / mmHG Vent. Rate : 071 BPM Atrial Rate : 071 BPM P-R Int : 174 ms QRS Dur : 090 ms QT Int : 398 ms P-R-T Axes : 029 -22 038 degrees QTc Int : 432 ms Normal sinus rhythm. Inferior infarct , age undetermined Abnormal ECG When compared with ECG of 24-AUG-2014 06:45, No significant change was found Unconfirmed Result
--- NOTE | 2017-01-24 10:39 | PROGRESS NOTE ---
DATE: 01/24/2017 SUBJECTIVE: Mr. Rust was found to have some pain medicines in his bed that he was taking. He states that he is feeling better. His tummy feels better. OBJECTIVE: Vital signs: Temp 99.4 degrees, pulse 67, respirations 11, blood pressure 127/60. Lungs: Clear in all lung treviño. Cardiovascular: Regular rhythm and rate without murmur or S3. Abdomen: Soft. Skin: Warm and dry. Intake and output: Urine output is 7000 mL. LABS: This morning, white count 5,140, hematocrit 39, platelet count 268,000. Sodium 130, potassium 5.0, chloride 91, BUN 41, creatinine 2.5 which has come down nicely. Blood sugar 106, 106, 99. ASSESSMENT AND PLAN: 1. Multiple electrolyte abnormalities, now resolving, with partial small bowel obstruction. He has been taking pain medicines as well. Suspect this is a major part of his trouble. He is having flatus. He was given a full liquid diet and continue to watch electrolytes. 2. Profound hyponatremia which is resolving. 3. Renal failure, acute kidney injury. Improving. 4. Hyperkalemia. Aware. Resolved. 5. Benign prostatic hypertrophy, urinary tract infection. Continue. 6. Blood pressure well controlled, hypertension. REVIEW OF HIS ORDERS: I do not see any change. cc: Grady Dillon MD
--- NOTE | 2017-01-24 11:31 | PROGRESS NOTE ---
DATE: 01/24/2017 SUBJECTIVE: Patient is sitting up in bed. He is awake and alert. He is wanting to eat some real food. OBJECTIVE: Vital Signs: Temperature 97.7 degrees, pulse 48, respiratory rate 11, blood pressure 123/64. Intake 2.7 L. Output 4.9 L. General: This is a middle-aged gentleman resting in bed. He is awake, alert, no acute distress. HEENT: Normocephalic, atraumatic. Oral mucosa moist. MAURICIO. Conjunctivae pink. Neck: Supple. There is no JVD. Trachea is midline. Cardiovascular: Regular rate and rhythm. There is no murmur or gallop. His pressor support is being turned off. Pulmonary: He has equal excursion. He has no increased work of breathing and is clear bilaterally. Abdomen: Soft. Positive bowel sounds, hypoactive. : He has a Benavidez catheter with yellow urine noted. Extremities: No clubbing, cyanosis or edema. Chronic venous stasis changes noted. Integumentary: Skin is warm and dry otherwise. LAB DATA: WBC of 5.1, hemoglobin 12.9. Sodium 130, potassium 5.0, CO2 24, BUN 41, creatinine 2.5 (3.8, 4.5, 5.2, 6.1). ASSESSMENT AND PLAN: 1. Acute kidney injury with renal function steadily improving with IV fluids, holding his ACEI, and having a Benavidez placed. The patient does have a history of BPH and has not been quite compliant with his Flomax as he should have been. He is followed by Dr. Salazar. He did not have hydronephrosis but likely did have some obstructive uropathy complicating his renal function. We will make no changes today. Check labs in the morning. Of note, he has a baseline creatinine of 1.3. We will sign off. Please contact me if I can be of further assistance. rg 2. Hyponatremia. This has resolved. 3. Hyperkalemia. Potassium is in acceptable range. 4. Urinary tract infection, on ceftriaxone. 5. Small bowel obstruction. Likely related to chronic constipation from opiate use and exacerbated by previous electrolyte imbalance. Surgery following. Gastroenterology has been consulted. He has had some flatus noted today according to the patient. His diet has been increased to a full liquid per surgery. Does not appear that he will have to have intervention at this time. 6. Hypertension. Blood pressure is currently in target and his pressors have been turned off. Seen, data reviewed, discussed with Jelani Gonzales on 01/24/17. I agree with the above assessment and plan of care. rg Dictated by DUC Metz for Maciej Mckeon MD cc: MD Grady Pagan MD [facility]
[2017-01-24] MEDS: LEVAQUIN 500 MG/D5W 500 MG/100 ML IVPB IV SCH (20:56)
[2017-01-24] MEDS: PROTONIX IV SCH (20:57)
[2017-01-25] MEDS: MORPHINE IV PRN ×6 (00:38→19:08)
[2017-01-25 07:22] LABS: HEMOGLOBIN 11.8 g/dL (14.0-18.0); MANUAL DIFF NEEDED? NO
[2017-01-25 08:10] LABS: EOS% 2.6 % (0.0-10.0); HEMATOCRIT 34.3 % (42.0-52.0); IMM GRAN# 0.05 X1000 (0.0-0.04); IMM GRAN% 1.3 % (0.0-0.5); LYMPH# 0.68 X1000 (1.2-3.4); LYMPH% 17.8 % (20.5-51.1); MCHC 34.4 g/dL (33-37); MONO# 0.65 X1000 (0.11-0.59); MPV 9.6 FL (7.4-10.4); NEUT% 60.3 % (42.2-75.2); PLT 264 X1000 (130-400); RBC 3.81 XMIL (4.7-6.1)
[2017-01-25 08:12] LABS: ALBUMIN 3.3 g/dL (3.5-5.0); CALCIUM 9.1 mg/dL (8.8-10.2); POTASSIUM 4.9 mmol/L (3.5-5.1)
[2017-01-25] MEDS: FLOMAX PO SCH ×2 (08:23→20:59)
[2017-01-25] MEDS: ATIVAN IV SCH ×3 (08:24→21:03)
--- NOTE | 2017-01-25 09:39 | PROGRESS NOTE ---
DATE: 01/24/2017 SUBJECTIVE: The patient has been stable overnight. He was able to pass gas and have a small bowel movement. It appears that his small bowel obstruction is slowly improving. Of concern, the patient was found to be consuming pain medicines with extra pain pills and a pain medicine bottle found in his bed while he was in the ICU. The patient states that he needed more pain medicines then he was receiving in the hospital so he took some from his own supply. PHYSICAL EXAMINATION: Vital Signs: On examination, his blood pressure is 134/80, pulse of 85, respirations 16, temperature of 98.7 degrees. General: The patient was resting comfortably in the bed and denies symptoms. Abdomen: He was able to press on his abdomen and note that he was not tender at this time. The remainder of his exam was deferred. OBJECTIVE DATA: Reveals a hemoglobin of 12.9 with a hematocrit of 39, and a white count of 5.14. He has 268,000 platelets. Sodium is 130, potassium 5, chloride 91, CO2 24, BUN 41, creatinine 2.5, with a glucose of 99. Calcium is 8.9, phosphorus 3.6, and albumin 3.5. IMPRESSION: 1. Small bowel obstruction, improving. 2. Electrolytes with derangements. 3. Gastroparesis. 4. Nausea with vomiting, improved. 5. Known cirrhosis. 6. Portal hypertension with known esophageal varices. 7. Alcohol abuse. 8. Possible narcotic addiction. RECOMMENDATION: 1. From a GI perspective, his small bowel continues to improve slowly with correction of his electrolyte derangements. I recommend continued conservative care. 2. Continue Protonix 40 mg IV daily. 3. Continue Carafate. 4. Complete his course of vitamin D supplementation. We will check levels as an outpatient. 5. Consider a trial of Bentyl depending on his bowel habits as he continues to improve. 6. Medications during this admission is concerning. I will defer to the primary team for management. cc: MD Grady Bennett MD
[2017-01-25] MEDS: NS 1,000 ML IV SCH ×4 (11:29→21:04)
--- NOTE | 2017-01-25 13:38 | PROGRESS NOTE ---
DATE: 01/25/2017 SUBJECTIVE: Patient transferred up to the floor. He is doing well. He is passing gas and tolerating his diet. OBJECTIVE: Vital Signs: Patient is currently afebrile. His vital signs stable. General: No acute distress. HEENT: Normocephalic, atraumatic. Pupils equal, round, reactive to light. Mucous membranes moist. Oropharynx benign. Neck: Supple. Trachea midline. Cardiovascular: Regular rate and rhythm. Lungs: Grossly clear. Abdomen: Soft, nontender, nondistended at this time. Active bowel sounds auscultated. Extremities: Moves all extremities. Neurologic: Grossly intact. Skin: No signs of jaundice. Vascular: All extremities perfused. LABORATORY: Still pending from this morning. ASSESSMENT AND PLAN: A 61-year-old male with multiple electrolyte abnormalities now with resolving partial small bowel obstruction. Multiple electrolyte abnormalities this time being managed by the hospitalist service. Appears to be improving. There were 2 partial small bowel obstruction, this time he has had return of bowel function. I think he essentially resolved, I will put him on a regular diet and see how he does. cc: MD Grady North MD
[2017-01-25] MEDS: COLACE PO SCH ×2 (14:54→20:59)
[2017-01-25] MEDS: PRINZIDE 20/12.5MG PO SCH (14:54)
--- NOTE | 2017-01-25 17:39 | PROGRESS NOTE ---
DATE: 01/25/2017 Mr. Rust is frustrated that he is not having large bowel movements. He feels like he is still dehydrated and needs more fluid. He also asked about some medicine that would counteract his pain medicine to help his bowels move. He is eating. He did get up some today. He is requesting that we go up on his pain medicine.Vital signs: Temperature 98.1 degrees, pulse 92, respirations 17, blood pressure 140/70, CVP less than 6 cm. Lungs: Clear in all lung treviño. Cardiovascular: Regular rhythm and rate without murmur or S3. Abdomen: Soft. Skin: Is warm and dry. LABORATORIES: From today, white count 3830, hematocrit 34, platelet count 264,000. Sodium 132, potassium 4.9, chloride 94, BUN 22, creatinine 1.4. Blood sugar 93, 101, 102, 145. ASSESSMENT AND PLAN: 1. Small-bowel obstruction which is improving. Electrolytes look good. He would like to go up on the stool softener at the present time. I think we will try some Colace and maybe put him on some MiraLAX as well. 2. We will decrease his morphine. 3. Acute kidney injury which is improved. Creatinine down to 1.4. We will give him a little bit more fluid. He is getting IV fluids at 75 mL an hour. I gave him 125 mL an hour for a while. 4. Benign prostatic hypertrophy. He is on Flomax 0.4 mg b.i.d. We will increase his activity and see if we can get his bowels going. cc: Grady Dillon MD
[2017-01-25] MEDS ORDERED: RELISTOR SUBQ ONE (19:57)
[2017-01-25] MEDS: LEVAQUIN 500 MG/D5W 500 MG/100 ML IVPB IV SCH (20:58)
[2017-01-25] MEDS: PROTONIX IV SCH (20:59)
[2017-01-26] MEDS: MORPHINE IV PRN ×2 (03:51→06:36)
[2017-01-26] MEDS: NS 1,000 ML IV SCH (06:36)
[2017-01-26 06:45] LABS: MANUAL DIFF NEEDED? NO
[2017-01-26 06:59] LABS: BASO% 0.9 % (0.0-0.8); EOS# 0.15 X1000 (0.0-0.7); EOS% 2.8 % (0.0-10.0); HEMATOCRIT 36.7 % (42.0-52.0); IMM GRAN# 0.15 X1000 (0.0-0.04); IMM GRAN% 2.8 % (0.0-0.5); LYMPH# 0.93 X1000 (1.2-3.4); LYMPH% 17.1 % (20.5-51.1); MCH 28.8 PG (27-31); MCHC 32.7 g/dL (33-37); MCV 88.2 FL (81-99); MONO% 14.7 % (1.7-9.3); MPV 9.4 FL (7.4-10.4); NEUT% 61.7 % (42.2-75.2); PLT 295 X1000 (130-400); RBC 4.16 XMIL (4.7-6.1)
[2017-01-26 07:23] LABS: ALBUMIN 3.3 g/dL (3.5-5.0); CALCIUM 8.7 mg/dL (8.8-10.2); POTASSIUM 4.3 mmol/L (3.5-5.1)
[2017-01-26] MEDS: ATIVAN IV SCH (08:49)
[2017-01-26] MEDS: FLOMAX PO SCH (08:50)
[2017-01-26] MEDS: COLACE PO SCH (08:50)
[2017-01-26] MEDS: PRINZIDE 20/12.5MG PO SCH (08:50)
[2017-01-26] MEDS ORDERED: AMITIZA PO SCH (09:00)
--- NOTE | 2017-01-26 10:02 | PROGRESS NOTE ---
DATE: 01/26/2017 SUBJECTIVE: Patient doing well. No major issues. He is tolerating his diet and having bowel movements. OBJECTIVE: Vital Signs: Patient is currently afebrile. His vital signs are stable. General: No acute distress. HEENT: Normocephalic and atraumatic. Pupils equal, round, and reactive to light. Mucous membranes moist. Oropharynx benign. Neck: Supple. Trachea midline. Cardiovascular: Regular rate and rhythm. Lungs: Grossly clear. Abdomen: Soft, nontender, nondistended. Active bowel sounds. Extremities: Moves all extremities. Neurologic: Grossly intact. Skin: No signs of jaundice. Vascular: All extremities perfused. LABORATORY: Reviewed from yesterday. ASSESSMENT AND PLAN: A 61-year-old male with multiple electrolyte abnormalities, now resolved, with resolved partial small-bowel obstruction. 1. Multiple electrolyte abnormalities, at this time being managed by the Hospitalist Service. 2. Partial small-bowel obstruction at this time is clinically resolved. I will be available if needed. cc: MD Grady North MD
[2017-01-26 13:26] VITALS: BP 136/75
--- NOTE | 2017-01-26 16:27 | DISCHARGE SUMMARY ---
ADMISSION DATE: 01/22/2017 DISCHARGE DATE: 01/26/2017 HISTORY OF PRESENT ILLNESS: This is a 61-year-old male with past medical history of hypertension, peripheral neuropathy, who presented to the emergency room feeling weak and problem with urination. He complained of general weakness and trouble with urination for awhile. The patient reports around January 11 he was complaining of burning urination. He also needed to push in order to make urine stream. Patient reported being seen by urologist, Dr. Salazar, in the past. He has prostate hypertrophy and got a prostate biopsy in August of this year. He was having these problems since January 11, so his sister actually gave him Bactrim for 5 days two times a day. During that period of time he was feeling better. Less pain when he urinates. He also reported no fever or chills. He stopped the Bactrim 3 days before admission. Since then, he has been feeling more weak and more tired. As mentioned before, denies any fever or chills. He was seen at the [facility] and sent there for abnormal labs. He got a CT of the abdomen and pelvis that basically showed partial small bowel obstruction. Severe hyponatremia, hyperkalemia. PAST MEDICAL HISTORY: 1. Hypertension. 2. Diabetes mellitus type 2. Because of bariatric surgery, he stopped taking these medications about 14 years ago. 3. Bilateral neuropathy. 4. Insomnia. 5. Benign prostatic hypertrophy with urinary retention. PAST SURGICAL HISTORY: 1. Gastric bypass in 2003. 2. Back surgery. 3. Patient has had 3 laminectomies, the last one many years ago. At some point he was placed on nerve stimulation that was finally removed. HOSPITAL COURSE: 1. He drinks some vodka he reports twice a week. He denies any smoking or illicit drugs. He is allergic to Ceclor, codeine, tetanus vaccine and toxoid. He was admitted with acute renal failure, urinary retention. Last visit to the hospital 3 weeks ago. He had labs November 2015. The hospitalist showed a creatinine 1.3, BUN 26, GFR 57. When he was admitted, creatinine was 6.1, GFR was 9, and felt this was multifactorial. He was a little dehydrated. We put a Benavidez catheter in or Dr. Salazar did, and he was put on some IV antibiotics. 2. He had severe hyponatremia and he was given fluids. He appeared to be volume depleted and he drank some Gatorade and this resolved fairly quickly. 3. Severe hyperkalemia. EKG did not show any serious EKG abnormalities and he got some rectal Kayexalate and his potassium was followed and remained well controlled. 4. Severe hyponatremia which corrected fairly quickly. Skipwith this was hypovolemic hyponatremia. 5. Urinary tract infection treated with ceftriaxone 1 g q. 24 hours, and his urine grew out E coli, which was sensitive to cefazolin. Note that he had up there he is allergic to cephalexin and Ceclor, but he tolerated the IV antibiotics well. Patient was switched to Levaquin 500 mg IV daily, and he tolerated this well. He had partial small-bowel obstruction which improved slowly when he advanced his diet. He had several bowel movements. I did put him on some stool softener and was requesting to go home on 01/26/2017. 6. The last thing is he has chronic pain syndrome for which he takes opioid analgesics, and we had taken him off of those when he came in. He is on Valium 10 mg at bedtime, he is on Bentyl 10 mg p.o. 4 times a day, vitamin D 2 50,000 units every 3 days. He had 10 capsules. Prevacid 30 mg a day, lisinopril/hydrochlorothiazide which is 20/25 one a day, Roxicodone 30 mg 4 times a day, OxyContin 40 mg daily and Carafate 1 g four times a day. I had long discussions with him that I do not think he is going to tolerate these pain medicines. I think these pain medicines are going to further exacerbate his urinary retention and make him prone to have partial small-bowel obstruction if not complete. He was very resistant with that. I think he wanted us to find some medicine that we would counteract the effects of the opioids. He was started on Amitiza 24 mcg p.o. b.i.d. We will continue that. He was put on Colace 100 mg b.i.d. He will follow up with his primary care. Follow up with Dr. Salazar. Dr. Salazar stated he likely will need a transurethral prostatectomy. Dr. Salazar saw him on 01/23 and placed a Benavidez catheter. He felt that the longstanding history of benign prostatic hypertrophy with symptoms likely develop prostatitis, and we will continue the Flomax 0.4 mg twice a day. I will give him another 7 days of Levaquin 500 mg a day. cc: Grady Dillon MD
== END 2017-01-26 17:17 | disposition home or self-care (01) ==
LOC: ED 16:38 → ICU 21:07 → SUATTDRO 21:07 → ICU 21:21 → 3N 01-24 12:54
PROVIDERS: ADMIT Emergency Medicine; ATTEND Emergency Medicine